=== PATIENT | male | born 1945 | race Caucasian/White ===

== ENCOUNTER 2019-02-02 14:23 | Inpatient (IN) | payer BC ==
[~2019-02-02] VITALS: Ht 180.3 cm; Wt 74.6 kg
[2019-02-02 14:36] VITALS: BP_SYST 116
[2019-02-02] MEDS ORDERED: ASPIRIN 81 MG TAB.CHEW PO ONE (14:45)
[2019-02-02 15:32] LABS: ANION GAP 4 (5-15); CALCIUM 9.1 mg/dL (8.4-11.0); CHLORIDE 102 mmol/L (98-107); CREATININE 0.89 mg/dL (0.55-1.30); GLUCOSE 112 mg/dL (70-99); HEMATOCRIT 41.2 % (36-54); HEMOGLOBIN 13.8 g/dL (14.0-18.0); LYMPHOCYTES % (AUTO) 20.9 % (20.5-51.5); MEAN CORPUSCULAR HEMOGLOBIN 30 pg (27-31); MEAN CORPUSCULAR HGB CONC 34 % (32-36); MEAN CORPUSCULAR VOLUME 88 fL (79.0-98.0); NEUTROPHILS % (AUTO) 66.4 % (40.0-70.0); PLATELET COUNT (AUTO) 308 K/uL (130-430); POTASSIUM 3.4 mmol/L (3.5-5.1); RED BLOOD CELL COUNT(AUTO) 4.69 MIL/uL (4.2-6.2); RED CELL DISTRIBUTION WIDTH 14.7 % (9.0-15.0); SODIUM SERUM 135 mmol/L (136-145); UREA NITROGEN, BLOOD 15 mg/dL (8-21); WHITE BLOOD COUNT (AUTO) 9.7 K/uL (4.8-10.8)
[2019-02-02 15:33] LABS: BASOPHILS % (AUTO) 0.5 % (0.0-2.0); EOSINOPHILS # (AUTO) 0.3 K/uL (0.0-0.4); MONOCYTES # (AUTO) 0.9 K/uL (0.0-1.0); MONOCYTES % (AUTO) 9.2 % (1.7-9.3); NEUTROPHILS # (AUTO) 6.4 K/uL (1.8-7.7)
[2019-02-02 15:36] LABS: INR 0.9 (0.80-1.20); PROTHROMBIN TIME 9.6 SECS (9.5-12.5)
[2019-02-02 15:37] LABS: ALANINE AMINOTRANSFERASE 208 U/L (12-78); ALBUMIN 3.4 g/dL (3.4-4.8); ASPARTATE AMINOTRANSFERASE 176 U/L (10-37); TOTAL BILIRUBIN 0.4 mg/dL (0.0-1.0)
[2019-02-02] MEDS ORDERED: ASPIRIN 81 MG TAB.CHEW ONE (17:21)
[2019-02-02] MEDS ORDERED: FAMOTIDINE PF 20 MG/2 ML VIAL IVP ONE (19:00)
[2019-02-02] MEDS ORDERED: GABA-529 PO (19:32)
[2019-02-02] MEDS ORDERED: ASPI-1155 PO (19:32)
[2019-02-02] MEDS ORDERED: ASPI-1153 PO (19:32)
[2019-02-02 19:54] VITALS: BP_SYST 140
[2019-02-02] MEDS ORDERED: POTASSIUM CHLORIDE 40 MEQ in NS 250 ML IV ONE (20:45)
[2019-02-02] MEDS: D5/0.45 NS 1,000 ML IV SCH (20:52)
[2019-02-02] MEDS: GABAPENTIN 100 MG CAPSULE PO SCH (21:55)
[2019-02-02] MEDS ORDERED: KCL 40 mEq in 100 mL (PREMIX) 100 ML IV ONE (22:10)
[2019-02-03] MEDS: GABAPENTIN 100 MG CAPSULE PO SCH ×3 (05:47→22:27)
[2019-02-03] MEDS: D5/0.45 NS 1,000 ML IV SCH ×3 (05:50→22:27)
[2019-02-03 06:21] VITALS: BP_SYST 140
[2019-02-03 08:02] VITALS: BP_SYST 135
[2019-02-03] MEDS: ASPIRIN 81 MG TAB.CHEW PO SCH (08:17)
[2019-02-03] MEDS ORDERED: DIATR MEGLU/DIATRIZ SOD 30 ML SOLUTION PO ONE (08:41)
[2019-02-03] MEDS ORDERED: ONDANSETRON HCL 4 MG/2 ML VIAL IVP PRN (08:45)
[2019-02-03] MEDS ORDERED: HYDROcodone/ACETAMIN 5-325 MG TAB (NORCO/ VICODIN) PO PRN (08:45)
[2019-02-03] MEDS ORDERED: HYDROcodone/ACETAMIN 10-325 MG TAB PO PRN (08:45)
[2019-02-03] MEDS ORDERED: MORPHINE 4 MG/ML INJ. SYRINGE IVP PRN ×2 (08:45)
[2019-02-03] MEDS ORDERED: LORazepam 2 MG/ML VIAL IVP PRN (08:45)
[2019-02-03] MEDS ORDERED: ACETAMINOPHEN 325 MG TABLET PO PRN (08:45)
[2019-02-03] MEDS: ASPIRIN 81 MG TABLET(ECOTRIN) PO SCH (09:00)
[2019-02-03] MEDS: PRESERVISION AREDS 2 PO SCH ×2 (09:30→22:26)
[2019-02-03] MEDS ORDERED: IOHEXOL 100 ML IV ONE (11:15)
[2019-02-03 12:11] VITALS: BP_SYST 151
[2019-02-03 16:40] VITALS: BP_SYST 145
[2019-02-03 21:00] VITALS: BP_SYST 144
[2019-02-04 00:56] VITALS: BP_SYST 154
[2019-02-04] MEDS: GABAPENTIN 100 MG CAPSULE PO SCH ×2 (06:10→15:06)
[2019-02-04 07:13] LABS: ALANINE AMINOTRANSFERASE 128 U/L (12-78); ALBUMIN 3.1 g/dL (3.4-4.8); AMYLASE 104 U/L (0-100); ANION GAP 7 (5-15); ASPARTATE AMINOTRANSFERASE 45 U/L (10-37); CHLORIDE 104 mmol/L (98-107); CREATININE 0.76 mg/dL (0.55-1.30); GLUCOSE 93 mg/dL (70-99); LIPASE 252 U/L (73-393); POTASSIUM 3.5 mmol/L (3.5-5.1); SODIUM SERUM 136 mmol/L (136-145); TOTAL BILIRUBIN 0.4 mg/dL (0.0-1.0); UREA NITROGEN, BLOOD 8 mg/dL (8-21)
[2019-02-04 07:58] LABS: WHITE BLOOD COUNT (AUTO) 9.7 K/uL (4.8-10.8)
[2019-02-04 07:59] LABS: BASOPHILS # (AUTO) 0.1 K/uL (0.0-0.2); BASOPHILS % (AUTO) 0.6 % (0.0-2.0); EOSINOPHILS # (AUTO) 0.6 K/uL (0.0-0.4); EOSINOPHILS % (AUTO) 6.1 % (0.0-4.0); HEMATOCRIT 40.3 % (36-54); HEMOGLOBIN 13.2 g/dL (14.0-18.0); LYMPHOCYTES # (AUTO) 2.3 K/uL (1.0-5.5); LYMPHOCYTES % (AUTO) 23.7 % (20.5-51.5); MEAN CORPUSCULAR HEMOGLOBIN 29 pg (27-31); MEAN CORPUSCULAR HGB CONC 33 % (32-36); MEAN CORPUSCULAR VOLUME 89 fL (79.0-98.0); MONOCYTES % (AUTO) 10.7 % (1.7-9.3); NEUTROPHILS # (AUTO) 5.7 K/uL (1.8-7.7); NEUTROPHILS % (AUTO) 58.9 % (40.0-70.0); PLATELET COUNT (AUTO) 306 K/uL (130-430); RED BLOOD CELL COUNT(AUTO) 4.53 MIL/uL (4.2-6.2); RED CELL DISTRIBUTION WIDTH 14.6 % (9.0-15.0)
[2019-02-04 08:02] VITALS: BP_SYST 123
[2019-02-04] MEDS: ASPIRIN 81 MG TABLET(ECOTRIN) PO SCH (08:23)
[2019-02-04] MEDS: ASPIRIN 81 MG TAB.CHEW PO SCH (08:24)
[2019-02-04] MEDS: PRESERVISION AREDS 2 PO SCH (08:24)
[2019-02-04] MEDS: D5/0.45 NS 1,000 ML IV SCH (11:15)
[2019-02-04 11:30] VITALS: BP_SYST 141
[2019-02-04 11:34] LABS: CHOLESTEROL 178 mg/dL (<200); HDL CHOLESTEROL 29 mg/dL (>45); LDL CHOLESTEROL 124 mg/dL (<100); TRIGLYCERIDES 148 mg/dL (30-150)
[2019-02-04 17:57] VITALS: BP_SYST 141
[2019-02-04 18:04] VITALS: BP_SYST 140
[2019-02-04 19:06] LABS: CALCIUM 9.1 mg/dL (8.4-11.0)
== END 2019-02-04 18:50 | disposition home or self-care (01) | DRG 439 ==
LOC: SED 14:23 → SMU 19:15
PROVIDERS: ADMIT Preventive Medicine Preventive Medicine/Occupational Environmental Medicine; ATTEND Preventive Medicine Preventive Medicine/Occupational Environmental Medicine
DX: K85.90 Acute pancreatitis without necrosis or infection, unspecified (principal); E87.1 Hypo-osmolality and hyponatremia; E87.6 Hypokalemia; E88.09 Other disorders of plasma-protein metabolism, not elsewhere classified; R73.9 Hyperglycemia, unspecified; R74.0 Nonspecific elevation of levels of transaminase and lactic acid dehydrogenase [LDH]; Z98.49 Cataract extraction status, unspecified eye
CPT/HCPCS: 36415; 71045; 76700-TC; 80053; 80061; 82150-TC; 82550-TC; 83690-TC; 83880; 84484; 85025; 85610-TC; 85730-TC; 93005; 96374; 99285; J3480; J3490; J7050; Q9964; Q9967